=== PATIENT | female | born 1955 | race Caucasian/White ===

== ENCOUNTER 2023-02-09 13:45 | Emergency (ER) | payer MEDICARE, SELFPAY ==
[2023-02-09] VITALS (9 sets, daily range): BP systolic 119–190; BP diastolic 73–106; PULSE 66–95; RESP 17–20; TEMP 36.4–36.6; O2SAT 97–100; BMI 25.4
[2023-02-09 14:12] LABS: Basophils % 0.1 % (0.1-2.0); Eosinophils % 0.2 % (0.1-12.0); Hemoglobin 14.6 g/dL (12.2-16.2); Lymphocytes # 0.7 K/mm3 (0.7-4.5); Lymphocytes % 5.1 % (10-50); Mean Corpuscular HGB Conc 31.8 g/dL (31.8-35.4); Mean Corpuscular Hemoglobin 29.5 pg (27.0-31.2); Mean Corpuscular Volume 92.7 fl (81-99); Mean Platelet Volume 7.8 fl (7.4-10.4); Monocytes # 0.5 K/mm3 (0.1-1.0); Monocytes % 3.4 % (1.7-9.3); Neutrophils # 13.1 K/mm3 (1.8-7.8); Neutrophils % 91.2 % (37.0-80.0); Platelet Count 211 K/mm3 (142-424); Red Blood Count 4.96 M/mm3 (4.20-5.40); White Blood Count 14.3 K/mm3 (4.8-10.8)
[2023-02-09 14:14] LABS: MANUAL DIFFERENTIAL MANUAL DIFFERENTIAL (MANUAL DIFF)
[2023-02-09 14:19] LABS: Chloride 103 mmol/L (98-107)
[2023-02-09 14:20] LABS: Potassium 3.7 mmoL/L (3.5-5.1); Sodium 140 mmol/L (136-145)
[2023-02-09 14:22] LABS: Alanine Aminotransferase 33 U/L (12-78); Aspartate Amino Transferase 46 U/L (14-36); Blood Urea Nitrogen 15 mg/dl (7-17); Creatinine Clearance Estimated 57 mL/min (50-200); Estimated Glomerular Filt Rate 99 ml/min (>60); GFR (African American) 120 ML/MIN (>60)
[2023-02-09 14:23] LABS: Albumin Level 4.5 g/dl (3.5-5.0); Albumin/Globulin Ratio 1.6 (1.1-1.8); Alkaline Phosphatase 88 U/L (38-126); Anion Gap 15.7 mEq/L (5-15); Bilirubin,Total 0.3 mg/dl (0.2-1.3); Carbon Dioxide 25 mmol/L (22.0-30.0); Globulin 2.8 g/dL (1.3-3.2); Glucose 145 mg/dl (74-100); Total Protein,Serum 7.3 g/dl (6.3-8.2)
[2023-02-09 15:01] LABS: Lymphocytes % 8 % (10-50); Monocytes % 1 % (2-9); Neutrophils % 91 % (42-76); Platelet Estimate Normal; RBC Morphology Normal; Total Cells Counted 100
--- NOTE | 2023-02-09 15:10 | HMH.EDGENADL ---
Discharge Plan Disposition Patient Disposition: Home, Self-Care Prescriptions Prescriptions: New ondansetron 4 mg tablet,disintegrating 4 mg PO Q8H PRN (Reason: Nausea) Qty: 15 0RF Activity Restrictions/Add. Instructions Additional Instructions/Restrictions: Return for worsening vomiting diarrhea abdominal pain or any other concerns within the next 8 hours otherwise follow-up with your primary care physician within the next few days Clinical Impressions Clinical Impression: Diarrhea Instructions Patient Instructions: DI for Diarrhea and Traveler's Diarrhea -- Adult, DI for Diarrhea and Traveler's Diarrhea -- Child, DI for Nausea -- Adult, DI for Nausea -- Child Discharge ED Provider: Alfonso Curran General Adult HPI General Chief complaint: Nausea/Vomiting/Diarrhea Stated complaint: nausea Time Seen by Provider: 02/09/23 14:00 Mode of Arrival: EMS Source of Information: Patient Limitations: No Limitations Description of Symptoms (Recalled from ER Triage Doc. by RN): pt presents by EMS c/o n/v/d and dizzness. pt states symptoms started approx 3-4 hours ago while eating breakfast. History of Present Illness HPI narrative: 68-year-old female presents with nausea and vomiting and dizziness. She had diffuse diarrhea this morning and it was watery. She thinks that she ate something funny yesterday and thinks that this was due to to the cause of her diarrhea. She came in via EMS for lightheadedness. Feeling better after Phenergan and fluids in route. No chest pain abdominal pain headache numbness weakness or tingling arms or legs Related Data Previous Rx's Medication Instructions Recorded ondansetron 4 mg disintegrating 4 mg PO Q8H PRN Nausea #15 tabs 02/09/23 tablet Allergies Allergy/AdvReac Type Severity Reaction Status Date / Time doxycycline Allergy Verified 02/09/23 13:49 [facility] Disclaimer: The information contained in this section may have been updated after the patient was seen, as this information can be updated by other users. Social History Smoking Status: Never smoker alcohol intake: never current occupational status: employed Travel in the last 8 weeks: Inside the [place] ROS Obtained: Yes All systems reviewed & no additional complaints except as documented Constitutional Constitutional: Denies fatigue Eyes Eyes: Denies diplopia ENT Ears, Nose, Mouth, and Throat: Reports dizziness, Denies dysphagia, Denies epistaxis and Denies tongue swelling Cardiovascular Cardiovascular: Denies diaphoresis Respiratory Respiratory: Denies cough Gastrointestinal Gastrointestingal: Denies dysphagia Genitourinary Female Genitourinary: Denies flank pain Musculoskeletal Musculoskeletal: Denies joint stiffness Integumentary/Breasts Skin/Breast: Denies redness Neurologic Neurologic: Reports dizziness Endocrine Endocrine: Denies fatigue Hematologic/Lymphatic Henatologic/Lymphatic: Denies easy bleeding Allergic/Immunologic Allergic/Immunologic: Denies tongue swelling Physical Exam General General appearance: alert and in no apparent distress Eye Eye exam: Present PERRL and EOMI ENT ENT exam: Present normal exam and normal oropharynx Neck Neck exam: Present normal inspection Chest Chest inspection: Present symmetric chest wall rise Respiratory Respiratory exam: Present normal lung sounds bilaterally; Absent respiratory distress Cardiovascular Cardiovascular exam: Present regular rate and normal rhythm Abdominal Exam Abdominal exam: Present soft; Absent distention, tenderness, guarding, rebound, Ny's sign or tenderness at McBurney's Point Back Exam Back exam: Present normal inspection Neurological Exam Neurological exam: Present alert, oriented X3, CN II-XII intact and normal gait; Absent motor sensory deficit Psychiatric Psychiatric exam: Present normal affect and normal mood Skin Skin exam: Present warm, dry and intact Lymphatic Lymphatic Findings: no adenopathy
--- NOTE | 2023-02-09 15:18 | PC.NURSE ---
attempted to walk pt in room, pt dizzy upon standing, pt unable to walk without stumbling with staff assist x2. notified ER
[2023-02-09 15:53] LABS: Coronavirus 19, PCR Not Detected (NotDetected); Influenza A, PCR Not Detected (NotDetected); Influenza B, PCR Not Detected (NotDetected)
--- NOTE | 2023-02-09 16:33 | CT_ITS ---
PROCEDURE INFORMATION: Exam: CTA Head With Contrast, Arteriography Exam date and time: 02/09/2023 4:53 PM Age: 68 years old Clinical indication: Pain; Headache TECHNIQUE: Imaging protocol: Computed tomographic angiography of the head with contrast. Exam focused on the arteries. 3D rendering (Not supervised by radiologist): MIP and/or 3D reconstructed images were created by the technologist. Radiation optimization: All CT scans at this facility use at least one of these dose optimization techniques: automated exposure control; mA and/or kV adjustment per patient size (includes targeted exams where dose is matched to clinical indication); or iterative reconstruction. Contrast material: ISOVUE; Contrast volume: 100 ml; Contrast route: INTRAVENOUS (IV); REPORTING DATA: Count of CT and Cardiac NM exams in prior 12 months: This patient has received 0 known CTs and 0 known cardiac nuclear medicine studies in the 12 months prior to the current study. COMPARISON: CT HEAD/BRAIN WO CON 02/09/2023 4:51 PM FINDINGS: ANTERIOR CIRCULATION: Right internal carotid artery: Right internal carotid atherosclerotic disease causes mild stenosis in the distal cavernous and moderate stenosis in the distal supraclinoid segment. Right middle cerebral artery: No occlusion or significant stenosis. No aneurysm. Right anterior cerebral artery: No occlusion or significant stenosis. No aneurysm. Left internal carotid artery: There is moderate stenosis in the distal left supraclinoid segments of the internal carotid artery related to atherosclerosis. Left middle cerebral artery: No occlusion or significant stenosis. No aneurysm. Left anterior cerebral artery: No occlusion or significant stenosis. No aneurysm. POSTERIOR CIRCULATION: Right vertebral artery: No occlusion or significant stenosis. No aneurysm. Left vertebral artery: No occlusion or significant stenosis. No aneurysm. Basilar artery: No occlusion or significant stenosis. No aneurysm. Right posterior cerebral artery: No occlusion or significant stenosis. No aneurysm. Left posterior cerebral artery: The left BAG HANGER has anatomic variant origin. Brain: No definite mass, mass effect, or midline shift. Cerebral ventricles: No ventriculomegaly. Bones/joints: Unremarkable. No acute fracture. Soft tissues: Unremarkable. IMPRESSION: 1. No large vessel occlusion or high-grade stenosis. 2. Atherosclerotic changes, as described.
--- NOTE | 2023-02-09 16:33 | CT_ITS ---
PROCEDURE INFORMATION: Exam: CT Abdomen And Pelvis With Contrast Exam date and time: 02/09/2023 4:56 PM Age: 68 years old Clinical indication: Abdominal pain; Flank; Left; Additional info: Left sided abdominal pain TECHNIQUE: Imaging protocol: Computed tomography of the abdomen and pelvis with contrast. Radiation optimization: All CT scans at this facility use at least one of these dose optimization techniques: automated exposure control; mA and/or kV adjustment per patient size (includes targeted exams where dose is matched to clinical indication); or iterative reconstruction. Contrast material: ISOVUE; Contrast volume: 50 ml; Contrast route: IV; REPORTING DATA: Count of CT and Cardiac NM exams in prior 12 months: This patient has received 0 known CTs and 0 known cardiac nuclear medicine studies in the 12 months prior to the current study. COMPARISON: No relevant prior studies available. FINDINGS: Lungs: Minimal bibasilar atelectasis or scarring. Diaphragm: Small-sized hiatal hernia. Liver: Normal. Gallbladder and bile ducts: Normal. Pancreas: Normal. Spleen: Splenic calcifications, compatible with prior granulomatous disease. Adrenal glands: Normal. No mass. Kidneys and ureters: Simple right renal cyst, for which no further evaluation necessary. Stomach and bowel: Normal. Appendix: Appendix normal. Intraperitoneal space: Unremarkable. No free air. No significant fluid collection. Vasculature: Phleboliths within the pelvis. Atherosclerotic disease of the abdominal aorta and iliac arteries. Lymph nodes: Unremarkable. No enlarged lymph nodes. Urinary bladder: Unremarkable as visualized. Reproductive: Unremarkable as visualized. Bones/joints: Degenerative changes of the hips and sacroiliac joints. L5-S1 degenerative disc space narrowing and vacuum disc phenomenon, with grade 1 degenerative retrolisthesis of L5 on S1. Soft tissues: Normal. IMPRESSION: No acute abdominal or pelvic abnormality.
--- NOTE | 2023-02-09 16:33 | CT_ITS ---
PROCEDURE INFORMATION: Exam: CT Head Without Contrast Exam date and time: 02/09/2023 4:51 PM Age: 68 years old Clinical indication: Pain; Headache TECHNIQUE: Imaging protocol: Computed tomography of the head without contrast. Radiation optimization: All CT scans at this facility use at least one of these dose optimization techniques: automated exposure control; mA and/or kV adjustment per patient size (includes targeted exams where dose is matched to clinical indication); or iterative reconstruction. REPORTING DATA: Count of CT and Cardiac NM exams in prior 12 months: This patient has received 0 known CTs and 0 known cardiac nuclear medicine studies in the 12 months prior to the current study. COMPARISON: No relevant prior studies available. FINDINGS: Brain: No acute infarct. No hemorrhage. Unremarkable white matter for age. No mass effect. Cerebral ventricles: No ventriculomegaly. Paranasal sinuses: No significant inflammation. No fluid levels. Mastoid air cells: Visualized mastoid air cells are well aerated. Bones/joints: Unremarkable. No acute fracture. Soft tissues: Unremarkable. IMPRESSION: No acute intracranial abnormality.
--- NOTE | 2023-02-09 16:33 | CT_ITS ---
PROCEDURE INFORMATION: Exam: CTA Neck With Contrast Exam date and time: 02/09/2023 4:53 PM Age: 68 years old Clinical indication: Pain; Headache TECHNIQUE: Imaging protocol: Computed tomographic angiography of the neck with contrast. 3D rendering (Not supervised by radiologist): MIP and/or 3D reconstructed images were created by the technologist. Radiation optimization: All CT scans at this facility use at least one of these dose optimization techniques: automated exposure control; mA and/or kV adjustment per patient size (includes targeted exams where dose is matched to clinical indication); or iterative reconstruction. Contrast material: ISOVUE; Contrast volume: 100 ml; Contrast route: INTRAVENOUS (IV); REPORTING DATA: Count of CT and Cardiac NM exams in prior 12 months: This patient has received 0 known CTs and 0 known cardiac nuclear medicine studies in the 12 months prior to the current study. COMPARISON: CT HEAD/BRAIN WO CON 02/09/2023 4:51 PM FINDINGS: Right common carotid artery: No stenosis. No dissection or occlusion. Right internal carotid artery: Atherosclerotic changes proximal right internal carotid artery with 50% stenosis due to calcified and noncalcified plaque. Transient retropharyngeal course. Right external carotid artery: No occlusion or stenosis of the origin. Left common carotid artery: No stenosis. No dissection or occlusion. Left internal carotid artery: No stenosis of the extracranial segment. No dissection or occlusion. Left external carotid artery: No occlusion or stenosis of the origin. 6 mm hypodense right-sided thyroid nodule present. Right vertebral artery: No stenosis. No dissection or occlusion. Left vertebral artery: No stenosis. No dissection or occlusion. Soft tissues: Normal. No significant soft tissue swelling. Bones/joints: No acute fracture. IMPRESSION: 1. No occlusion or significant stenosis. 2. Atherosclerosis with 50% stenosis proximal right internal carotid artery. REFERENCES: NASCET CRITERIA. The degree of stenosis in the cervical segment of the internal carotid artery is based on NASCET criteria. Normal is no stenosis. Mild is less than 50% stenosis. Moderate is 50-69% stenosis. Severe is 70% to 99% stenosis. Total occlusion is no detectable patent lumen.
--- NOTE | 2023-02-09 16:47 | PC.NURSE ---
pt to CT via stretcher
--- NOTE | 2023-02-09 17:03 | PC.NURSE ---
pt return from CT
--- NOTE | 2023-02-09 18:30 | PC.NURSE ---
pt reported to ER MD feeling better, no longer feeling as dizzy, wanting to go home, pt on the phone trying to find a ride home at this time.
--- NOTE | 2023-02-09 20:15 | PC.NURSE ---
Rounded on pt, educated on d/c information. She reports, I'm still getting dizzy. Let pt know MD did send in script for nausea medication. She reports, I still would like to get my fluids . There is about 400ml remaining in IVF bag. Pt reconnected to VS monitoring and IVF. Will check back with pt soon to see status of her transportation home.
--- NOTE | 2023-02-09 21:45 | PC.NURSE ---
IVF complete. Pt still reports I don't have anyone to get me, I live clear over to [place] . Pt states she has a friend that maybe can get her and will call.
--- NOTE | 2023-02-09 23:35 | PC.NURSE ---
Pt reports that she does not have a ride tonight. She was educated that she has been d/c. Pt states it's too late for anyone to get me. I guess I'll just push some chairs together and lay out there until morning . Staff calling pt's sister to check if she is able to have a ride home.
--- NOTE | 2023-02-09 23:51 | PC.NURSE ---
Called and spoke with pt's sister who advised she thought the patient was going to be admitted and that's why she had not come to get the patient. I advised her pt had been ready for d/c since around 1830 and she thought the pt was being admitted. Advised she was unable to come at this time for the patient and there was no one near by who would be able to come and get her. Advised she would be able to come and pick her up in the morning. I advised her that would be ok. Updated patient that her sister would be here in the am to pick her up and that we would let her sleep in the ED tonight until her sister arrived in the morning. Pt agreeable with this.
== END 2023-02-10 00:07 | disposition home or self-care (01) ==
PROVIDERS: Emergency Provider Emergency Medicine
DX: R11.2 Nausea with vomiting, unspecified (principal); R19.7 Diarrhea, unspecified; R42 Dizziness and giddiness
CPT/HCPCS: 70450; 70496; 70498; 74177; 80053; 85007; 85025; 87635; 87636; 96360; 96361; 99284; 99285; C9803; Q9967; U0003; U0005